=== PATIENT | male | born 1980 | race Two or more races ===

== ENCOUNTER 2020-07-11 10:32 | Emergency (ER) | payer SELFPAY ==
[~2020-07-11] VITALS: Ht 160 cm; Wt 68.0 kg
[2020-07-11] MEDS ORDERED: HYDROcodone-ACET 10/325MG TAB PO ONE (11:15)
[2020-07-11 12:15] VITALS: BP 129/92
== END 2020-07-11 15:02 | disposition home or self-care (01) ==
LOC: ER 10:32 → EDBD 10:32 → ER 15:02
DX: S09.90XA Unspecified injury of head, initial encounter (principal); S16.1XXA Strain of muscle, fascia and tendon at neck level, initial encounter; W19.XXXA Unspecified fall, initial encounter; Y93.89 Activity, other specified; Y99.8 Other external cause status; Y92.89 Other specified places as the place of occurrence of the external cause
CPT/HCPCS: 70450; 72125; 72131; 93005